=== PATIENT | male | born 1935 ===

== ENCOUNTER 2019-12-28 07:30 | Inpatient (IN) | payer OTHER ==
[~2019-12-28] VITALS: Ht 172.7 cm; Wt 123.4 kg
[2019-12-28] MEDS ORDERED: JARDIANCE25 MG PO (08:23)
[2019-12-28] MEDS ORDERED: LANTUS (08:23)
[2019-12-28] MEDS ORDERED: NORVASC5 MG PO (08:24)
[2019-12-28] MEDS ORDERED: NOVOLOG (08:24)
[2019-12-28] MEDS ORDERED: OMEGA 3-6-9 11200 M1 PO (08:25)
[2019-12-28] MEDS ORDERED: HCTZ PO (08:25)
[2020-01-03] MEDS ORDERED: HYDROCHLOROTHIA25 MG PO (09:08)
[2020-01-03] MEDS ORDERED: ROSUVASTATIN CA40 MG (09:09)
[2020-01-05] MEDS ORDERED: ELIQUIS2.5 MG PO (14:42)
[2020-01-05] MEDS ORDERED: DUI500 PO (14:42)
[2020-01-05] MEDS ORDERED: PERCOCET 5-3251 EACH PO (14:42)
[2020-01-06] MEDS ORDERED: ULTRACET PO (08:33)
[2020-01-06] MEDS ORDERED: ELIQUIS2.5 MG PO (08:33)
== END 2020-01-06 12:56 | DRG 470 ==
LOC: SURG 01-03 06:24 → O/R 01-03 06:24 → SURG 01-03 10:42 → O/R 01-03 15:45 → SURG 01-06 12:56
PROVIDERS: ADMIT Orthopaedic Surgery
PROC: 0MNP0ZZ Release Left Knee Bursa and Ligament, Open Approach (ICD-10-PCS; 2020-01-03)
PROC: 0SRD0J9 Replacement of Left Knee Joint with Synthetic Substitute, Cemented, Open Approach (ICD-10-PCS; principal; 2020-01-03 15:45)
DX: M17.12 Unilateral primary osteoarthritis, left knee (principal); D62 Acute posthemorrhagic anemia; E66.09 Other obesity due to excess calories; I10 Essential (primary) hypertension; E11.9 Type 2 diabetes mellitus without complications; Z79.4 Long term (current) use of insulin